=== PATIENT | male | born 1930 | race Caucasian/White ===

== ENCOUNTER 2018-03-14 08:13 | Observation (INO) | payer MEDICARE, BC ==
[~2018-03-14] VITALS: Ht 182.9 cm; Wt 86.4 kg
[~2018-03-14 08:13] MED LIST: ASPIRIN ADULT L81 M3 PO; FLOMAX 0.40.4 MG/CAP PO; HCTZ 25MG25 MG PO; LISINOPRIL AND1 TA1 PO; LOPRESSOR 225 MG/TAB PO; NORCO 325 MG-7.1 TAB PO; PEG 335017 GM/Dose PO; SIMVASTATIN20 M1 PO; XARELTO10 MG PO
[2018-03-14 08:40] LABS: EOS # 0.1 (0.04-0.40); EOS % 1.5 % (0.0-4.0); HEMATOCRIT 39.8 % (42.0-52.0); LYMPH# 2.1 (1.50-4.00); MEAN CELL VOLUME 93 fl (78-100); MEAN CORPUSCULAR HEMOGLOBIN 30 pg (27-31); MEAN CORPUSCULAR HGB CONC 33 g/dL (33-37); MEAN PLATELET VOLUME 10.8 fl (7.4-10.4); MONO # 0.7 (0.20-0.80); NEU # 4.6 (1.40-6.50); PLATELET COUNT 199 K/mm3 (130-400); RED BLOOD COUNT 4.29 M/mm3 (4.20-5.60); RED CELL DISTRIBUTION WIDTH 13.6 % (11.5-14.5); WHITE BLOOD COUNT 7.5 K/mm3 (4.8-10.8)
[2018-03-14 08:49] LABS: ALBUMIN 4.1 g/dL (3.5-5.0); BUN/CREATININE RATIO 24.3 (6.0-26.0); CALCIUM 9.6 mg/dL (8.4-10.2); POTASSIUM 4.2 mmol/L (3.6-5.0); TOTAL BILIRUBIN 0.4 mg/dL (0.2-1.3)
[2018-03-14 09:08] VITALS: BP 132/70
[2018-03-14 10:20] LABS: PH-URINE 6.5 (5.0 - 8.0); URINE APPEARANCE CLEAR; URINE BILIRUBIN NEGATIVE (NEGATIVE); URINE COLOR YELLOW; URINE GLUCOSE NEGATIVE (NEGATIVE); URINE KETONE NEGATIVE (NEGATIVE); URINE NITRATE NEGATIVE (NEGATIVE); URINE PROTEIN(semi-quant) NEGATIVE (NEGATIVE); URINE UROBILINOGEN NORMAL (NORMAL)
[2018-03-14 10:21] LABS: URINE BLOOD NEGATIVE (NEGATIVE); URINE LEUKOCYTE ESTERASE NEGATIVE (NEGATIVE); URINE WBC 0-1 /hpf (0-3)
[2018-03-14 15:36] VITALS: BP 123/68
[2018-03-14 15:43] VITALS: BP 123/68
[2018-03-14 18:46] VITALS: BP 116/52
[2018-03-14 23:00] VITALS: BP 114/68
[2018-03-15 03:14] VITALS: BP 133/75
[2018-03-15 06:22] VITALS: BP 130/72
[2018-03-15 11:09] VITALS: BP 144/73
[2018-03-15 15:14] VITALS: BP 136/67
[2018-03-15 19:20] VITALS: BP 135/72
[2018-03-15 23:04] VITALS: BP 150/75
[2018-03-16 03:00] VITALS: BP 130/64
[2018-03-16 05:47] VITALS: BP 142/71
[2018-03-16] MEDS ORDERED: ANTIVERT12.5 M1 PO (10:24)
[2018-03-16 11:45] VITALS: BP 120/72
== END 2018-03-16 12:36 | disposition home or self-care (01) ==
LOC: ED 08:13 → MED/SURG 15:05
PROVIDERS: ADMIT Family Medicine
DX: R42 Dizziness and giddiness (principal); R00.1 Bradycardia, unspecified; I44.0 Atrioventricular block, first degree; I12.9 Hypertensive chronic kidney disease with stage 1 through stage 4 chronic kidney disease, or unspecified chronic kidney disease; N18.9 Chronic kidney disease, unspecified; Z79.899 Other long term (current) drug therapy; R20.2 Paresthesia of skin; E78.5 Hyperlipidemia, unspecified
CPT/HCPCS: G0378; G8978-GP; G8979-GP; J2765; J7030

== ENCOUNTER 2018-03-19 13:04 | Emergency (ER) | payer MEDICARE, BC ==
[~2018-03-19] VITALS: Ht 182.9 cm; Wt 86.4 kg
[~2018-03-19 13:04] MED LIST changes: +ANTIVERT12.5 M1 PO
[2018-03-19 15:30] LABS: HEMATOCRIT 40.3 % (42.0-52.0); MEAN CELL VOLUME 94 fl (78-100); MEAN CORPUSCULAR HEMOGLOBIN 30 pg (27-31); MEAN CORPUSCULAR HGB CONC 32 g/dL (33-37); MEAN PLATELET VOLUME 10.8 fl (7.4-10.4); PLATELET COUNT 220 K/mm3 (130-400); RED CELL DISTRIBUTION WIDTH 13.5 % (11.5-14.5); WHITE BLOOD COUNT 7.9 K/mm3 (4.8-10.8)
[2018-03-19 15:39] LABS: ALBUMIN 4.1 g/dL (3.5-5.0); BUN/CREATININE RATIO 17.8 (6.0-26.0); CALCIUM 9.5 mg/dL (8.4-10.2); POTASSIUM 4.4 mmol/L (3.6-5.0); TOTAL BILIRUBIN 0.3 mg/dL (0.2-1.3); TOTAL PROTEIN 7.1 g/dL (6.3-8.2)
[2018-03-19 15:47] LABS: D-DIMER 0.79 mg/L FEU (0.15-0.50)
[2018-03-19 15:49] LABS: TROPONIN-I < 0.03 ng/mL (0.00-0.06)
[2018-03-19 15:58] LABS: LYMPHOCYTE 28 % (20-51); MONOCYTE 12 % (3-10); NEUTROPHILS 57 % (42-75)
[2018-03-19 19:03] VITALS: BP 126/70
== END 2018-03-19 18:53 | disposition home or self-care (01) ==
LOC: ED 13:04
PROVIDERS: Physician Assistant
DX: R42 Dizziness and giddiness (principal); R00.1 Bradycardia, unspecified; I10 Essential (primary) hypertension; E78.5 Hyperlipidemia, unspecified; Z79.899 Other long term (current) drug therapy

== ENCOUNTER → 2018-04-05 | Outpatient (CLI) | payer MEDICARE, BC ==
[2018-03-19 19:03] VITALS: BP 126/70
[2018-04-05 14:41] LABS: HEMATOCRIT 37.5 % (42.0-52.0); HEMOGLOBIN 12.2 g/dL (13.5-18.0); MEAN CELL VOLUME 94 fl (78-100); MEAN CORPUSCULAR HEMOGLOBIN 30 pg (27-31); MEAN CORPUSCULAR HGB CONC 33 g/dL (33-37); MEAN PLATELET VOLUME 10.5 fl (7.4-10.4); PLATELET COUNT 204 K/mm3 (130-400); RED BLOOD COUNT 4.01 M/mm3 (4.20-5.60); RED CELL DISTRIBUTION WIDTH 13.5 % (11.5-14.5)
[2018-04-05 14:57] LABS: BUN/CREATININE RATIO 17.8 (6.0-26.0); CALCIUM 9.4 mg/dL (8.4-10.2); POTASSIUM 4.5 mmol/L (3.6-5.0); TOTAL BILIRUBIN 0.3 mg/dL (0.2-1.3); TOTAL PROTEIN 6.6 g/dL (6.3-8.2)
[2018-04-05 16:00] LABS: LYMPHOCYTE 40 % (20-51); NEUTROPHILS 51 % (42-75)
[2018-04-05 16:01] LABS: MONOCYTE 6 % (3-10)
== END ==
LOC: RAD 14:14
PROVIDERS: Internal Medicine
DX: I65.23 Occlusion and stenosis of bilateral carotid arteries (principal); I12.9 Hypertensive chronic kidney disease with stage 1 through stage 4 chronic kidney disease, or unspecified chronic kidney disease; N18.9 Chronic kidney disease, unspecified; E78.2 Mixed hyperlipidemia

== ENCOUNTER → 2018-04-22 | Outpatient (CLI) | payer MEDICARE, BC ==
[2018-04-22 14:31] LABS: CALCIUM 9.3 mg/dL (8.4-10.2); POTASSIUM 4.5 mmol/L (3.6-5.0)
== END ==
LOC: LAB 13:46
PROVIDERS: Internal Medicine
DX: I10 Essential (primary) hypertension (principal)

== ENCOUNTER → 2018-05-26 | Outpatient (CLI) | payer MEDICARE, BC ==
[2018-05-26 09:33] LABS: CALCIUM 9.8 mg/dL (8.4-10.2); POTASSIUM 4.4 mmol/L (3.6-5.0)
== END ==
LOC: LAB 09:10
PROVIDERS: Internal Medicine
DX: I10 Essential (primary) hypertension (principal)

== ENCOUNTER 2018-05-30 13:31 | Emergency (ER) | payer MEDICARE, BC ==
[~2018-05-30] VITALS: Ht 180.3 cm; Wt 84.1 kg
[2018-05-30] MEDS ORDERED: METOPROLOL SUCC25 M1 PO (13:49)
[2018-05-30] MEDS ORDERED: ASPIRIN E.C. 8181 MG PO (13:51)
[2018-05-30 14:16] LABS: HEMATOCRIT 41.7 % (42.0-52.0); HEMOGLOBIN 13.7 g/dL (13.5-18.0); MEAN CELL VOLUME 93 fl (78-100); MEAN CORPUSCULAR HEMOGLOBIN 31 pg (27-31); MEAN CORPUSCULAR HGB CONC 33 g/dL (33-37); MEAN PLATELET VOLUME 11.1 fl (7.4-10.4); PLATELET COUNT 233 K/mm3 (130-400); RED BLOOD COUNT 4.48 M/mm3 (4.20-5.60); RED CELL DISTRIBUTION WIDTH 13.9 % (11.5-14.5); WHITE BLOOD COUNT 7.8 K/mm3 (4.8-10.8)
[2018-05-30 14:22] LABS: ALBUMIN 4.6 g/dL (3.5-5.0); CALCIUM 9.7 mg/dL (8.4-10.2); POTASSIUM 4.2 mmol/L (3.6-5.0); TOTAL BILIRUBIN 0.6 mg/dL (0.2-1.3); TOTAL PROTEIN 7.3 g/dL (6.3-8.2)
[2018-05-30 14:46] LABS: LYMPHOCYTE 36 % (20-51); MONOCYTE 6 % (3-10); NEUTROPHILS 52 % (42-75)
[2018-05-30 18:01] VITALS: BP 144/70
[2018-05-30 19:25] LABS: URINE APPEARANCE CLEAR; URINE BILIRUBIN NEGATIVE (NEGATIVE); URINE BLOOD NEGATIVE (NEGATIVE); URINE COLOR YELLOW; URINE GLUCOSE NEGATIVE (NEGATIVE); URINE KETONE NEGATIVE (NEGATIVE); URINE LEUKOCYTE ESTERASE NEGATIVE (NEGATIVE); URINE MUCUS PRESENT (NOT PRESENT); URINE NITRATE NEGATIVE (NEGATIVE); URINE PROTEIN(semi-quant) TRACE mg/dL (NEGATIVE); URINE UROBILINOGEN NORMAL (NORMAL); URINE WBC 0-1 /hpf (0-3)
== END 2018-05-30 18:13 | disposition home or self-care (01) ==
LOC: ED 13:31
PROVIDERS: Family Medicine
DX: K40.91 Unilateral inguinal hernia, without obstruction or gangrene, recurrent (principal); I10 Essential (primary) hypertension; Z79.899 Other long term (current) drug therapy; Z79.82 Long term (current) use of aspirin
CPT/HCPCS: J1885; J3010

== ENCOUNTER → 2018-06-22 | Outpatient (CLI) | payer MEDICARE, BC ==
[2018-05-30 18:01] VITALS: BP 144/70
[~2018-06-22] MED LIST changes: +ASPIRIN E.C. 8181 MG PO; +METOPROLOL SUCC25 M1 PO
[2018-06-22 09:50] LABS: CALCIUM 9.6 mg/dL (8.4-10.2); POTASSIUM 4.1 mmol/L (3.6-5.0)
== END ==
LOC: LAB 09:05
PROVIDERS: Internal Medicine
DX: I10 Essential (primary) hypertension (principal)

== ENCOUNTER → 2018-09-14 | Outpatient (CLI) | payer MEDICARE, BC ==
[2018-09-14 15:07] LABS: CALCIUM 9.6 mg/dL (8.4-10.2); POTASSIUM 4.3 mmol/L (3.6-5.0)
== END ==
LOC: LAB 13:35
PROVIDERS: Internal Medicine
DX: I10 Essential (primary) hypertension (principal)

== ENCOUNTER 2018-10-27 08:59 | Observation (INO) | payer MEDICARE, BC ==
[~2018-10-27] VITALS: Ht 182.9 cm; Wt 84.8 kg
[2018-10-27 09:28] LABS: HEMATOCRIT 41.7 % (42.0-52.0); HEMOGLOBIN 13.7 g/dL (13.5-18.0); MEAN CELL VOLUME 92 fl (78-100); MEAN CORPUSCULAR HEMOGLOBIN 30 pg (27-31); MEAN CORPUSCULAR HGB CONC 33 g/dL (33-37); MEAN PLATELET VOLUME 11.2 fl (7.4-10.4); PLATELET COUNT 225 K/mm3 (130-400); RED BLOOD COUNT 4.53 M/mm3 (4.20-5.60); RED CELL DISTRIBUTION WIDTH 13.9 % (11.5-14.5); WHITE BLOOD COUNT 10.7 K/mm3 (4.8-10.8)
[2018-10-27] MEDS ORDERED: MIRALAX17 GM PO (09:29)
[2018-10-27] MEDS ORDERED: NORVASC 5MG5 MG/TAB PO (09:29)
[2018-10-27] MEDS ORDERED: SIMVASTATIN20 M1 PO (09:31)
[2018-10-27] MEDS ORDERED: FLUTICASON0.05 MG/AC NAS (09:32)
[2018-10-27 09:43] LABS: ALBUMIN 4.5 g/dL (3.5-5.0); CALCIUM 9.9 mg/dL (8.4-10.2); LYMPHOCYTE 48 % (20-51); MONOCYTE 13 % (3-10); NEUTROPHILS 37 % (42-75); PARTIAL THROMBOPLASTIN TIME 22.4 SECONDS (21.0-32.0); POTASSIUM 3.9 mmol/L (3.6-5.0); PROTHROMBIN TIME 10.1 SECONDS (9.0-12.0); TOTAL BILIRUBIN 0.6 mg/dL (0.2-1.3); TOTAL PROTEIN 7.3 g/dL (6.3-8.2)
[2018-10-27 11:15] VITALS: BP 163/100
[2018-10-27 11:37] LABS: URINE APPEARANCE CLEAR; URINE BILIRUBIN NEGATIVE (NEGATIVE); URINE BLOOD NEGATIVE (NEGATIVE); URINE COLOR YELLOW; URINE GLUCOSE NEGATIVE (NEGATIVE); URINE KETONE NEGATIVE (NEGATIVE); URINE LEUKOCYTE ESTERASE NEGATIVE (NEGATIVE); URINE NITRATE NEGATIVE (NEGATIVE); URINE PROTEIN(semi-quant) 1+ mg/dL (NEGATIVE); URINE UROBILINOGEN NORMAL (NORMAL); URINE WBC 0-1 /hpf (0-3)
--- NOTE | 2018-10-27 14:00 | NUR ---
Patient alert and oriented. Sitting up in chair. Neuro assessment unchanged. Gauze dressing to laceration on back of head has soaked through. Dressing removed. Approximately 4cm in diameter of blood noted to old dressing. Laceration to back of head is well approximated, two nancy intact. Four 4x4's applied and head wrapped with stretch bandage roll. Stephenie Lo. PALMER notified. Patient denies N/V. Denies pain. Denies needs or questions at this time. Fall precautions in place.
[2018-10-27 15:00] VITALS: BP 114/61; BP 114/69
[2018-10-27 18:44] VITALS: BP 130/75
--- NOTE | 2018-10-27 19:00 | NUR ---
REPORT RECEIVED FROM TONIE Rapp RN.
[2018-10-27 23:25] VITALS: BP 149/71
[2018-10-28 03:14] VITALS: BP 144/65
--- NOTE | 2018-10-28 03:22 | NUR ---
[employer]PERINTEND[employer] STAFF REPORTS TO THIS NURSE THAT PATIENT STATED HE WAS UNCOMFORTABLE LAYING IN BED BECAUSE OF THE PRESSURE THE PILLOW PUT ON HIS HEAD. SHE REPORTS PATIENT WANTED TO SIT UP IN HIS CHAIR AND ATTEMPT TO SLEEP THAT WAY. PATIENT REFUSES ANY PAIN MEDICATION AT THIS TIME.
--- NOTE | 2018-10-29 16:10 | NUR ---
PLEASE NOTE [employer] WENT DOWN AT 0400 ON 10/28/18. PLEASE LOOK FOR SCANNED RECORDS FOR ANY ACTIVITY AFTER THIS TIME FRAME TO 10/29/18 1400.
== END 2018-10-28 10:00 | disposition home or self-care (01) ==
LOC: ED 08:59 → MED/SURG 10:46
PROVIDERS: ADMIT Physician Assistant
DX: S06.9X9A Unspecified intracranial injury with loss of consciousness of unspecified duration, initial encounter (principal); S01.01XA Laceration without foreign body of scalp, initial encounter; R41.82 Altered mental status, unspecified; I12.9 Hypertensive chronic kidney disease with stage 1 through stage 4 chronic kidney disease, or unspecified chronic kidney disease; N18.9 Chronic kidney disease, unspecified; E78.5 Hyperlipidemia, unspecified; I47.1 Supraventricular tachycardia; Z96.641 Presence of right artificial hip joint; Z79.82 Long term (current) use of aspirin; Z87.891 Personal history of nicotine dependence; W18.30XA Fall on same level, unspecified, initial encounter; Y92.009 Unspecified place in unspecified non-institutional (private) residence as the place of occurrence of the external cause
CPT/HCPCS: 90714; G0378; J2405; L0172

== ENCOUNTER 2018-11-26 09:30 | Outpatient (RCR) | payer MEDICARE, BC ==
[~2018-11-26 09:30] MED LIST changes: +FLUTICASON0.05 MG/AC NAS; +MIRALAX17 GM PO; +NORVASC 5MG5 MG/TAB PO
== END 2019-02-09 | disposition home or self-care (01) ==
LOC: PT
DX: M54.2 Cervicalgia (principal); S29.019A Strain of muscle and tendon of unspecified wall of thorax, initial encounter; S06.0X1A Concussion with loss of consciousness of 30 minutes or less, initial encounter

== ENCOUNTER → 2018-12-30 | Outpatient (CLI) | payer MEDICARE, BC ==
[2018-12-30 10:18] LABS: HEMATOCRIT 42.5 % (42.0-52.0); HEMOGLOBIN 13.5 g/dL (13.5-18.0); MEAN CELL VOLUME 94 fl (78-100); MEAN CORPUSCULAR HEMOGLOBIN 30 pg (27-31); MEAN CORPUSCULAR HGB CONC 32 g/dL (33-37); MEAN PLATELET VOLUME 11.4 fl (7.4-10.4); PLATELET COUNT 199 K/mm3 (130-400); RED BLOOD COUNT 4.53 M/mm3 (4.20-5.60); RED CELL DISTRIBUTION WIDTH 14.1 % (11.5-14.5); WHITE BLOOD COUNT 7.6 K/mm3 (4.8-10.8)
[2018-12-30 10:25] LABS: ALBUMIN 4.4 g/dL (3.5-5.0); POTASSIUM 4.3 mmol/L (3.6-5.0); TOTAL BILIRUBIN 0.6 mg/dL (0.2-1.3); TOTAL PROTEIN 7.1 g/dL (6.3-8.2)
[2018-12-30 10:41] LABS: LYMPHOCYTE 39 % (20-51); MONOCYTE 11 % (3-10); NEUTROPHILS 43 % (42-75)
== END ==
LOC: LAB 09:40
PROVIDERS: Internal Medicine
DX: I12.9 Hypertensive chronic kidney disease with stage 1 through stage 4 chronic kidney disease, or unspecified chronic kidney disease (principal); N18.3 Chronic kidney disease, stage 3 (moderate); E78.2 Mixed hyperlipidemia